=== PATIENT | male | born 1970 | race African-American/Black ===

== ENCOUNTER 2017-03-13 11:06 | Emergency (ER) | payer OTHER | END 2017-03-13 11:34 | disposition home or self-care (01) | LOC: E/R 11:06 | DX: J45.901 Unspecified asthma with (acute) exacerbation (principal) | CPT/HCPCS: 99284; Z7502 ==

== ENCOUNTER 2017-04-30 12:30 | Emergency (ER) | payer OTHER ==
[2017-04-30] MEDS: IPRATROPIUM (NEB) 0.5 MG/2.5 ML AMP NEB (14:36)
[2017-04-30] MEDS: METHYLPREDNISOLONE 125 MG INJ IM (14:36)
[2017-04-30] MEDS: ALBUTEROL 0.5% (NEB) 2.5 MG/0.5 ML AMP INH (14:37)
== END 2017-04-30 16:04 | disposition home or self-care (01) ==
LOC: FTE 12:30
DX: J45.901 Unspecified asthma with (acute) exacerbation (principal)
CPT/HCPCS: 94644; 96372; 99284-25

== ENCOUNTER 2017-06-03 09:10 | Emergency (ER) | payer OTHER ==
[2017-06-03] MEDS: IPRATROPIUM (NEB) 0.5 MG/2.5 ML AMP NEB (12:20)
[2017-06-03] MEDS: ALBUTEROL 0.5% (NEB) 2.5 MG/0.5 ML AMP INH (12:20)
[2017-06-03] MEDS: predniSONE 20 MG TAB PO (12:22)
== END 2017-06-03 14:21 | disposition home or self-care (01) ==
LOC: FTE 09:10
DX: J06.9 Acute upper respiratory infection, unspecified (principal); J45.901 Unspecified asthma with (acute) exacerbation; H66.91 Otitis media, unspecified, right ear
CPT/HCPCS: 71045; 94644; 99284-25

== ENCOUNTER 2017-06-26 12:31 | Emergency (ER) | payer OTHER ==
[2017-06-26 15:08] LABS: ADD MAN DIFF? NO
[2017-06-26 15:11] LABS: WHITE BLOOD COUNT 7.9 10^3/ul (4.8-10.8)
[2017-06-26 15:11] LABS: BASOPHIL # 0.1 10^3/ul (0.0-0.1); BASOPHILS % 0.8 % (0.0-2.0); EOSINOPHILS # 0.8 10^3/ul (0.0-0.5); EOSINOPHILS % 9.9 % (0.0-7.0); HEMATOCRIT 39.5 % (42.0-52.0); HEMOGLOBIN 12.6 g/dl (14.0-18.0); LYMPHOCYTES # 1.4 10^3/ul (0.8-2.9); MEAN CORPUSCULAR HEMOGLOBIN 27.7 pg (29.0-33.0); MEAN CORPUSCULAR HGB CONC 31.9 g/dl (32.0-37.0); MEAN CORPUSCULAR VOLUME 86.8 fl (82.0-101.0); MEAN PLATELET VOLUME 11.5 fl (7.4-10.4); MONOCYTE # 0.9 10^3/ul (0.3-0.9); MONOCYTES % 11.1 % (0.0-11.0); NEUTROPHIL # 4.7 10^3/ul (1.6-7.5); NEUTROPHILS % 59.9 % (39.0-77.0); PLATELET COUNT 246 10^3/UL (140-415); RED BLOOD COUNT 4.55 10^6/ul (4.70-6.10); RED CELL DISTRIBUTION WIDTH 13.7 % (11.5-14.5)
[2017-06-26 15:28] LABS: ALANINE AMINOTRANSFERASE 38 IU/L (13-69); ALBUMIN 3.7 g/dl (3.3-4.9); ALBUMIN/GLOBULIN RATIO 1.15; ALKALINE PHOSPHATASE 87 IU/L (42-121); ANION GAP 12 (8-16); ASPARTATE AMINO TRANSFERASE 39 IU/L (15-46); BILIRUBIN,INDIRECT 0.1 mg/dl (0-1.1); BILIRUBIN,TOTAL 0.1 mg/dl (0.2-1.3); BLOOD UREA NITROGEN 10 mg/dl (7-20); CALCIUM 9.8 mg/dl (8.4-10.2); CARBON DIOXIDE 27 mmol/L (21-31); CHLORIDE 107 mmol/L (97-110); CREATININE 1.19 mg/dl (0.61-1.24); GLUCOSE 97 mg/dl (70-220); LIPASE 74 U/L (23-300); POTASSIUM 4.6 mmol/L (3.5-5.1); SODIUM 141 mmol/L (135-144); TOTAL PROTEIN 6.9 g/dl (6.1-8.1)
[2017-06-26 15:35] LABS: UR RBC 0 /HPF (0-5); UR WBC 0 /HPF (0-5)
[2017-06-26 16:09] LABS: ADD UMIC NO; UR ASCORBIC ACID 20 mg/dL (NEGATIVE); UR BILIRUBIN (Dip) NEGATIVE (NEGATIVE); UR BLOOD (Dip) NEGATIVE (NEGATIVE); UR CLARITY CLEAR (CLEAR); UR COLOR STRAW (YELLOW); UR GLUCOSE (Dip) NEGATIVE (NEGATIVE); UR KETONES (Dip) NEGATIVE (NEGATIVE); UR LEUKOCYTE ESTERASE (Dip) NEGATIVE Leu/ul (NEGATIVE); UR NITRITE (Dip) NEGATIVE (NEGATIVE); UR SPECIFIC GRAVITY (Dip) 1.013 (1.003-1.030); UR TOTAL PROTEIN (Dip) NEGATIVE (NEGATIVE); UR UROBILINOGEN (Dip) NEGATIVE (NEGATIVE)
== END 2017-06-26 17:23 | disposition home or self-care (01) ==
LOC: FTE 12:31
DX: K59.00 Constipation, unspecified (principal); J45.909 Unspecified asthma, uncomplicated
CPT/HCPCS: 74018; 76705; 80053; 81003; 83690; 85025; 99285-25

== ENCOUNTER 2017-07-14 05:38 | Emergency (ER) | payer OTHER ==
[2017-07-14] MEDS: ALBUTEROL 0.083% (NEB) 2.5 MG/3 ML AMP NEB (06:03)
[2017-07-14] MEDS: IPRATROPIUM (NEB) 0.5 MG/2.5 ML AMP NEB (06:03)
[2017-07-14] MEDS: predniSONE 20 MG TAB PO (06:14)
[2017-07-14] MEDS: ALBUTEROL HFA 8 GM INHALER INH (06:37)
[2017-07-14] MEDS ORDERED: ALBUTEROL HFA 8 GM INHALER INH (09:00)
== END 2017-07-14 07:11 | disposition home or self-care (01) ==
LOC: FTE 05:38
DX: J45.901 Unspecified asthma with (acute) exacerbation (principal)
CPT/HCPCS: 94664; 99284-25

== ENCOUNTER 2017-09-20 09:20 | Emergency (ER) | payer OTHER ==
[2017-09-20] MEDS: ALBUTEROL/IPRATROPIUM (NEB) 3 ML AMP HHN ×2 (10:09→11:16)
== END 2017-09-20 12:44 | disposition home or self-care (01) ==
LOC: FTE 09:20
DX: J45.41 Moderate persistent asthma with (acute) exacerbation (principal); J06.9 Acute upper respiratory infection, unspecified; Z76.0 Encounter for issue of repeat prescription
CPT/HCPCS: 94640; 94664; 99284-25

== ENCOUNTER 2017-12-13 08:26 | Emergency (ER) | payer OTHER ==
[2017-12-13] MEDS: METHYLPREDNISOLONE 125 MG INJ IV (08:46)
[2017-12-13] MEDS: ALBUTEROL 0.5% (NEB) 2.5 MG/0.5 ML AMP INH (08:46)
[2017-12-13] MEDS: IPRATROPIUM (NEB) 0.5 MG/2.5 ML AMP INH (08:46)
[2017-12-13] MEDS: MAGNESIUM SULFATE 2 GM/50 ML 50 ML IVPB (08:46)
== END 2017-12-13 11:11 | disposition home or self-care (01) ==
LOC: E/R 08:26
DX: J45.901 Unspecified asthma with (acute) exacerbation (principal)
CPT/HCPCS: 94644; 96374; 96375; 99284-25

== ENCOUNTER 2018-01-17 08:11 | Emergency (ER) | payer OTHER ==
[2018-01-17] MEDS: DEXAMETHASONE 4 MG TAB PO (08:43)
[2018-01-17] MEDS: ALBUTEROL 0.083% (NEB) 2.5 MG/3 ML AMP HHN (08:43)
[2018-01-17] MEDS: IPRATROPIUM (NEB) 0.5 MG/2.5 ML AMP HHN (08:43)
== END 2018-01-17 09:22 | disposition home or self-care (01) ==
LOC: FTE 08:11
DX: J45.901 Unspecified asthma with (acute) exacerbation (principal)
CPT/HCPCS: 94664; 99283-25

== ENCOUNTER 2018-02-27 17:26 | Emergency (ER) | payer OTHER ==
[2018-02-27] MEDS: predniSONE 20 MG TAB PO (19:04)
[2018-02-27] MEDS: IPRATROPIUM (NEB) 0.5 MG/2.5 ML AMP NEB (19:07)
[2018-02-27] MEDS: LEVALBUTEROL (NEB) 0.63 MG/3 ML AMP INH (19:08)
== END 2018-02-27 20:36 | disposition home or self-care (01) ==
LOC: FTE 17:26
DX: J45.901 Unspecified asthma with (acute) exacerbation (principal)
CPT/HCPCS: 94640; 99284-25

== ENCOUNTER 2018-05-11 10:39 | Emergency (ER) | payer OTHER ==
[2018-05-11] MEDS: DEXAMETHASONE 10 MG/ML 1 ML INJ IM (11:48)
[2018-05-11] MEDS: LEVALBUTEROL (NEB) 0.63 MG/3 ML AMP INH (11:55)
[2018-05-11] MEDS: IPRATROPIUM (NEB) 0.5 MG/2.5 ML AMP NEB (11:55)
== END 2018-05-11 13:51 | disposition home or self-care (01) ==
LOC: FTE 10:39
DX: J45.901 Unspecified asthma with (acute) exacerbation (principal)
CPT/HCPCS: 94664; 96372; 99284-25

== ENCOUNTER → 2018-11-06 | Emergency (ER) | payer OTHER ==
[2018-11-06] MEDS: DEXAMETHASONE 10 MG/ML 1 ML INJ IM (09:54)
[2018-11-06] MEDS: ALBUTEROL 0.083% (NEB) 2.5 MG/3 ML AMP HHN (10:21)
[2018-11-06] MEDS: IPRATROPIUM (NEB) 0.5 MG/2.5 ML AMP HHN (10:21)
== END | disposition home or self-care (01) ==
LOC: FTE 08:58
DX: J45.901 Unspecified asthma with (acute) exacerbation (principal); R06.02 Shortness of breath
CPT/HCPCS: 94640; 94644; 96372; 99284-25